=== PATIENT | male | born 1975 | race Caucasian/White ===

== ENCOUNTER 2022-02-21 07:43 | Outpatient (CLI) | payer BC, SELFPAY ==
[2022-02-21 13:36] LABS: Albumin* 4.5 g/dL (3.3-5.0); Chloride* 101 mmol/L (96-114); Sodium* 137 mmol/L (135-149)
[2022-02-21 13:37] LABS: Potassium* 4.7 mmol/L (3.6-5.1)
[2022-02-21 13:38] LABS: Cholesterol* 226 mg/dL (90-199)
[2022-02-21 13:39] LABS: Alanine Aminotransferase* 32 U/L (4-50); Alkaline Phosphatase* 115 U/L (40-150); Aspartate Amino Transferase* 21 U/L (12-35); Bilirubin Total* 0.7 mg/dL (0.1-1.5); Blood Urea Nitrogen* 15 mg/dL (5-24); Calcium* 9.7 mg/dL (8.4-10.6); Carbon Dioxide* 24 mmol/L (20-32); Creatinine* 0.9 mg/dL (0.5-1.5); Estimated Glomerular Filt Rate 106 ml/min; Glucose* 161 mg/dL (60-115); Triglycerides* 262 mg/dL (40-149); Uric Acid* 7.4 mg/dL (2.2-8.4)
[2022-02-21 13:40] LABS: HDL Cholesterol* 47 mg/dL (>=40); LDL Cholesterol Calculated 127 mg/dL (<100)
[2022-02-21 14:07] LABS: Total Protein* 8.2 g/dL (6.0-8.3)
== END 2022-02-21 07:44 | disposition home or self-care (01) ==
PROVIDERS: PCP Family Medicine; Visit Provider Family Medicine
DX: Z00.00 Encounter for general adult medical examination without abnormal findings (principal); E11.9 Type 2 diabetes mellitus without complications; I10 Essential (primary) hypertension; M10.9 Gout, unspecified; Z13.6 Encounter for screening for cardiovascular disorders
CPT/HCPCS: 80053; 80061; 84550

== ENCOUNTER 2022-05-27 14:21 | Outpatient (CLI) | payer BC, SELFPAY ==
[2022-05-27 14:16] LABS: Microalbumin Urine 1 mg/dL
[2022-05-27 14:18] LABS: Creatinine Urine 230.1 mg/dL; Microalbumin Creatinine Ratio 0 mg/g (0-30)
[2022-05-27 14:26] LABS: Albumin* 4.6 g/dL (3.3-5.0)
[2022-05-27 14:27] LABS: Chloride* 107 mmol/L (96-114); Potassium* 4.4 mmol/L (3.6-5.1); Sodium* 140 mmol/L (135-149)
[2022-05-27 14:29] LABS: Bilirubin Total* 0.6 mg/dL (0.1-1.5); Carbon Dioxide* 24 mmol/L (20-32); Cholesterol* 165 mg/dL (90-199); Creatinine* 0.9 mg/dL (0.5-1.5); Estimated Glomerular Filt Rate 106 ml/min
[2022-05-27 14:30] LABS: Alanine Aminotransferase* 52 U/L (4-50); Alkaline Phosphatase* 96 U/L (40-150); Aspartate Amino Transferase* 24 U/L (12-35); Blood Urea Nitrogen* 16 mg/dL (5-24); Calcium* 9.6 mg/dL (8.4-10.6); Glucose* 148 mg/dL (60-115); Total Protein* 7.2 g/dL (6.0-8.3); Triglycerides* 217 mg/dL (40-149); Uric Acid* 5.8 mg/dL (2.2-8.4)
[2022-05-27 14:31] LABS: HDL Cholesterol* 44 mg/dL (>=40); LDL Cholesterol Calculated 78 mg/dL (<100)
[2022-05-27 15:19] LABS: Vitamin B12* 429 pg/mL (243-894)
== END 2022-05-27 14:22 | disposition home or self-care (01) ==
PROVIDERS: PCP Family Medicine; Visit Provider Family Medicine
DX: E11.9 Type 2 diabetes mellitus without complications (principal); E78.00 Pure hypercholesterolemia, unspecified; I10 Essential (primary) hypertension; M10.9 Gout, unspecified; N20.0 Calculus of kidney
CPT/HCPCS: 80053; 80061; 82043; 82570; 82607; 84550

== ENCOUNTER 2022-10-11 07:22 | Outpatient (CLI) | payer BC, SELFPAY | END 2022-10-11 07:23 | disposition home or self-care (01) | LOC: NFLDREF 10-12 03:41 | PROVIDERS: PCP Family Medicine; Referring Provider Family Medicine; Visit Provider Family Medicine | DX: E11.9 Type 2 diabetes mellitus without complications (principal); E78.00 Pure hypercholesterolemia, unspecified; I10 Essential (primary) hypertension; E66.01 Morbid (severe) obesity due to excess calories | CPT/HCPCS: 80053; 80061; 82043; 82570; 82607 ==

== ENCOUNTER 2023-05-19 10:09 | Outpatient (CLI) | payer BC, SELFPAY | END 2023-05-19 10:10 | disposition home or self-care (01) | PROVIDERS: PCP Family Medicine; Visit Provider Family Medicine | DX: E11.9 Type 2 diabetes mellitus without complications (principal); I10 Essential (primary) hypertension; M10.9 Gout, unspecified | CPT/HCPCS: 80053; 80061; 82043; 82570; 82607; 84550 ==

== ENCOUNTER 2024-05-04 13:52 | Outpatient (CLI) | payer BC, SELFPAY ==
--- OUTSIDE RECORDS SUMMARY | 2024-05-06 10:56 | XMS_ITS | Continuity of Care Document ---
Author Name [facility] Organization [facility] Care Team Providers Care Print Journalist Name Role Phone [facility] Unavailable Unavailable Problems Combined list of problems from Department of Defense and Veterans Affairs facilities. It does not include entries that were removed or entered in error. Problem Status Onset Date Problem Type Date of Resolution Comments Source Exposure to potentially hazardous substance ([facility] [id number]) Active 09/05/19 24 Condition Sep 05, 2023 Entered By: BRIANA FLANAGAN [facility]: [facility] [employer] Documentation Initiative [facility] Body mass index 30+ - obesity Active Condition [facility] Diabetes Mellitus Type 2 ([facility] [id number]) Active Condition [facility] Diabetic retinopathy Active Condition [facility] Family social history Active Condition Jul 05, 2022 Entered By: LONNIE DE LA CRUZ Comment: lives with (line service technician at [facility]) she smokes tobacco and plan is to quit togetherJul 05, 2022 Entered By: LONNIE DE LA CRUZ Comment: 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[facility] [employer] [facility], 2022 Entered By: LONNIE DE LA CRUZ Comment: 30% [place]: [place], [place], [place], Jane,[place], [place] reeceJan 2022 Entered By: LONNIE DE LA CRUZ Comment: Tobacco Starated at age 20 max use was 1/2PPD now cut back to 5 or 6 Cig/dayJul 05, 2022 Entered By: LONNIE DE LA CRUZ Comment: NO AlcoholJul 05, 2022 Entered By: LONNIE DE LA CRUZ Comment: 2 STEP KIDS, Son [place]aughter [place] Entered By: LONNIE DE LA CRUZ Comment: Dad at age 59 NonHodgkins lymphoma, Mom has Parkinsons at age 70Jan 2022 Entered By: LONNIE DE LA CRUZ Comment: 1 Older sister has similar health problems [facility] Gout Active Condition [facility] History of cellulitis Active Condition Jul 05, 2022 Entered By: LONNIE DE LA CRUZ Comment: was hospitalized 01/2022 for Sepsis from left leg closer to knee [facility] History of surgery Active Condition Jul 05, 2022 Entered By: LONNIE DE LA CRUZ Comment: s/p Tonsillectomy [facility] HTN - Hypertension ([facility] [id number]) Active Condition [facility] Hyperlipidemia ([facility] [id number]) Active Condition [facility] Kidney Stone ([facility] [id number]) Active Condition [facility] OA - Osteoarthritis ([facility] [id number]) Active Condition Aug 06, 2022 Entered By: LONNIE DE LA CRUZ Comment: whole health counseling -cancelled/fail ed scheduling [facility] Diagnosis: ICD-10-CM Z00.01 Encounter for general adult medical exam w abnormal findings Active Diagnosis [facility] Diagnosis: ICD-10-CM Z01.01 Encounter for exam of eyes and vision w abnormal findings Active Diagnosis [facility] Medications Combined list of outpatient medications from Department of Defense and Veterans Affairs facilities.Medications provided include 1) outpatient medications from the last 15 months, and 2) patient-reported medications. Medication Details Route Status Patient Instructions Prescription Expires Prescription Number Last Dispense Date Ordering Provider Order Date Order Qty Source ALLOPURINOL 100MG TAB TAKE TWO TABLETS BY MOUTH EVERY DAY ORAL ACTIVE CINDY DE LA CRUZ 2022 [facility] CARBOXYMETH YLCELLULOSE NA 1% GEL,OPH 0.4ML INSTILL 1 DROP TO BOTH EYES FOUR TIMES A DAY NEEDED FOR DRY EYE, TEARING, BLURRY VISION OR EYE DISCOMFO RT OPHTHA [facility]IC 04/08/2024 [id number] [facility] DE JESUS 2022 [facility] FISH OIL 1000MG (500MG DHA/EPA) CAP,ORAL TAKE 1 CAPSULE BY MOUTH EVERY DAY ORAL ACTIVE CINDY DE LA CRUZ 2022 [facility] GLIPIZIDE 5MG TAB,SA TAKE ONE TABLET BY MOUTH EVERY DAY ORAL ACTIVE CINDY DE LA CRUZ 2022 [facility] HYDROCHLORO THIAZIDE 12.5MG/AYANNA NOPRIL 10MG TAB TAKE ONE TABLET BY MOUTH EVERY MORNING ORAL ACTIVE DE LA CRUZCINDY HAYES S 2023 [facility] METFORMIN HCL 750MG 24HR TAB,SA TAKE TWO TABLETS BY MOUTH EVERY DAY ORAL ACTIVE DE LA CRUZCINDY HAYES S 2023 [facility] ROSUVASTATI N CA 5MG TAB TAKE TWO TABLETS BY MOUTH EVERY DAY ORAL ACTIVE DE LA CRUZCINDY HAYES S 2022 [facility] VARENICLINE TAB TAKE 0.5-1MG BY MOUTH UD ORAL ACTIVE DE LA CRUZCINDY HAYES S 2023 [facility] Allergies, Adverse Reactions, Alerts Combined list of allergies from Department of [facility] and Veterans Affairs facilities. It does not include entries that were removed or entered in error. Substance Category Reaction Severity Reaction type Status Date Reported Comments Source No Known Allergies Drug allergy (disorder) active 09/07/2007 [facility] Immunizations Combined list of available immunizations from the Department of [facility] and Veterans Affairs facilities. Immunization Series Date Given Administered By Site Reaction Lot Number CVX Code Drug Skip Pitman Status Comments Source PNEUMOCOCCAL CONJUGATE PCV20, POLYSACCHARID E [id number] CONJUGATE, ADJUVANT, PF 2023 FREYA SANTO LEFT DELTO ID [id number] 216 complet ed [facility] INFLUENZA, INJECTABLE, QUADRIVALENT, PRESERVATIVE FREE 2022 150 complet ed [facility] COVID-19 (PFIZER), MRNA, LNP-S, BIVALENT BOOSTER, PF, 30 MCG/0.3 ML DOSE 4 2022 ANUJA REAVES LEFT DELTO ID [id number] 300 complet ed [facility] TDAP [address] [facility] COVID-19 (PFIZER), MRNA, LNP-S, PF, 30 MCG/0.3 ML DOSE 3 2020 208 complet ed [id number] COVID-19 (PFIZER), MRNA, LNP-S, PF, 30 MCG/0.3 ML DOSE 2020 208 complet ed [facility] INFLUENZA, UNSPECIFIED FORMULATION 2020 88 complet ed [facility] COVID-19 (PFIZER), MRNA, LNP-S, PF, 30 MCG/0.3 ML DOSE 2 2020 208 complet ed PFR; [id number]; 1 [facility] COVID-19 (PFIZER), MRNA, LNP-S, PF, 30 MCG/0.3 ML DOSE 1 2020 208 complet ed PFR; [id number]; 1 [facility] INFLUENZA, INJECTABLE, QUADRIVALENT, PRESERVATIVE FREE 2019 150 complet ed [facility] TDAP 2010 115 complet ed [facility] Results Combined list of recent chemistry, hematology and other laboratory results from Department of Defense and Veterans Affairs, ranging from 15 months to all on record, depending upon the facility. Order Name Results Value Reference Range Date Interpretation Specimen Comments Source OCCULT BLOOD FIT X1 SCREEN HEMOGLOBIN .GASTROINT ESTINAL.LO WER [PRESENCE] IN STOOL BY IMMUNOASSA Y --1ST SPECIMEN Negative 08/10 Specimen Type: FECES No comment entered. Ordering Provider: LONNIE DE LA CRUZ Report Released Date/Time: Jul 05, 2022 02:53 PM Reporting Lab: [facility] [address] Performing Lab: [facility] [address] [facility] MICROALB UMIN/CRE ATININE RATIO URINE CREATININE [MASS/VOLU ME] IN URINE 98.5 mg/dL 58.0 - 161.0 07/05 Specimen Type: URINE No comment entered. Ordering Provider: LONNIE DE LA CRUZ Report Released Date/Time: Jul 05, 2022 02:54 PM Reporting Lab: [facility] [address] Performing Lab: [facility] [address] [facility] MICROALB UMIN/CRE ATININE RATIO URINE MICROALBUM IN/CREATIN INE [MASS RATIO] IN URINE 8.9 mg/g{cre at} <29.9 - 29.9 07/05 Specimen Type: URINE No comment entered. Ordering Provider: LONNIE DE LA CRUZ Report Released Date/Time: Jul 05, 2022 02:54 PM Reporting Lab: [facility] [address] Performing Lab: [facility] [address] [facility] MICROALB UMIN/CRE ATININE RATIO URINE MICROALBUM IN [MASS/VOLU ME] IN URINE 8.8 mg/L <29.9 - 29.9 07/05 Specimen Type: URINE No comment entered. Ordering Provider: LONNIE DE LA CRUZ Report Released Date/Time: Jul 05, 2022 02:54 PM Reporting Lab: [facility] [address] Performing Lab: [facility] [address] [facility] HIV AG/AB SCREEN HIV 1+2 AB+HIV1 P24 AG [PRESENCE] IN SERUM OR PLASMA BY IMMUNOASSA Y NEGATIVE 07/05 Specimen Type: SERUM No comment entered. Ordering Provider: LONNIE DE LA CRUZ Report Released Date/Time: Jul 05, 2022 02:53 PM Reporting Lab: [facility] [address] Performing Lab: [facility] [address] [facility] ANTI-HEP C(EIA) HEPATITIS C VIRUS AB [PRESENCE] IN SERUM NEGATIVE 07/05 Specimen Type: SERUM No comment entered. Ordering Provider: LONNIE DE LA CRUZ Report Released Date/Time: Jul 05, 2022 02:53 PM Reporting Lab: [facility] [address] Performing Lab: [facility] [address] [facility] HEMOGLOB IN A1C HEMOGLOBIN A1C/HEMOGL OBIN.TOTAL IN BLOOD 6.9 4.0 - 6.0 07/05 H Specimen Type: BLOOD Comment: Values obtained from A1C measurement s can vary. For typical A1C assays, a reported value of 7.0 could actually be between 6.7 and 7.3 if measured by a reference method. A reported value of 9.0 could actually be between 8.7 and 9.3. Ref: http://www. ngsp.org/[place] Pdata.asp Ordering Provider: LONNIE DE LA CRUZ Report Released Date/Time: Jul 05, 2022 02:53 PM Reporting Lab: [facility] [address] Performing Lab: [facility] [address] [facility] CBC & DIFF LEUKOCYTES [#/VOLUME] IN BLOOD BY AUTOMATED COUNT 8.40 10*3/uL 4.0 - 11.0 07/05 Specimen Type: BLOOD Comment: Automated Differentia l Performed Ordering Provider: LONNIE DE LA CRUZ Report Released Date/Time: Jul 05, 2022 02:54 PM Reporting Lab: [facility] [address] Performing Lab: [facility] [address] [facility] CBC & DIFF ERYTHROCYT ES [#/VOLUME] IN BLOOD BY AUTOMATED COUNT 5.46 10*6/uL 4.6 - 6.2 07/05 Specimen Type: BLOOD Comment: Automated Differentia l Performed Ordering Provider: LONNIE DE LA CRUZ Report Released Date/Time: Jul 05, 2022 02:54 PM Reporting Lab: [facility] [address] Performing Lab: [facility] [address] [facility] CBC & DIFF HEMOGLOBIN [MASS/VOLU ME] IN BLOOD 15.9 g/dL 13.5 - 17.9 07/05 Specimen Type: BLOOD Comment: Automated Differentia l Performed Ordering Provider: LONNIE DE LA CRUZ Report Released Date/Time: Jul 05, 2022 02:54 PM Reporting Lab: [facility] [address] Performing Lab: [facility] [address] [facility] CBC & DIFF HEMATOCRIT [VOLUME FRACTION] OF BLOOD BY AUTOMATED COUNT 48.7 41 - 54 07/05 Specimen Type: BLOOD Comment: Automated Differentia l Performed Ordering Provider: LONNIE DE LA CRUZ Report Released Date/Time: Jul 05, 2022 02:54 PM Reporting Lab: [facility] [address] Performing Lab: [facility] [address] [facility] CBC & DIFF MCV [ENTITIC VOLUME] BY AUTOMATED COUNT 89.2 fL 80 - 100 07/05 Specimen Type: BLOOD Comment: Automated Differentia l Performed Ordering Provider: LONNIE DE LA CRUZ Report Released Date/Time: Jul 05, 2022 02:54 PM Reporting Lab: [facility] [address] Performing Lab: [facility] [address] [facility] CBC & DIFF MCH [ENTITIC MASS] BY AUTOMATED COUNT 29.1 pg 27 - 33 07/05 Specimen Type: BLOOD Comment: Automated Differentia l Performed Ordering Provider: LONNIE DE LA CRUZ Report Released Date/Time: Jul 05, 2022 02:54 PM Reporting Lab: [facility] [address] Performing Lab: [facility] [address] [facility] CBC & DIFF MCHC [MASS/VOLU ME] BY AUTOMATED COUNT 32.6 g/dL 32.0 - 37.5 07/05 Specimen Type: BLOOD Comment: Automated Differentia l Performed Ordering Provider: LONNIE DE LA CRUZ Report Released Date/Time: Jul 05, 2022 02:54 PM Reporting Lab: [facility] [address] Performing Lab: [facility] [address] [facility] CBC & DIFF PLATELETS [#/VOLUME] IN BLOOD BY AUTOMATED COUNT 302 10*3/uL 150 - 400 07/05 Specimen Type: BLOOD Comment: Automated Differentia l Performed Ordering Provider: LONNIE DE LA CRUZ Report Released Date/Time: Jul 05, 2022 02:54 PM Reporting Lab: [facility] [address] Performing Lab: [facility] [address] [facility] CBC & DIFF PLATELET MEAN VOLUME [ENTITIC VOLUME] IN BLOOD BY AUTOMATED COUNT 9.5 fL 7.4 - 10.4 07/05 Specimen Type: BLOOD Comment: Automated Differentia l Performed Ordering Provider: LONNIE DE LA CRUZ Report Released Date/Time: Jul 05, 2022 02:54 PM Reporting Lab: [facility] [address] Performing Lab: [facility] [address] [facility] CBC & DIFF NEUTROPHIL S/100 LEUKOCYTES IN BLOOD BY MANUAL COUNT 61.3 07/05 Specimen Type: BLOOD Comment: Automated Differentia l Performed Ordering Provider: LONNIE DE LA CRUZ Report Released Date/Time: Jul 05, 2022 02:54 PM Reporting Lab: [facility] [address] Performing Lab: [facility] [address] [facility] CBC & DIFF LYMPHOCYTE S/100 LEUKOCYTES IN BLOOD BY MANUAL COUNT 27.6 07/05 Specimen Type: BLOOD Comment: Automated Differentia l Performed Ordering Provider: LONNIE DE LA CRUZ Report Released Date/Time: Jul 05, 2022 02:54 PM Reporting Lab: [facility] [address] Performing Lab: [facility] [address] [facility] CBC & DIFF MONOCYTES/ 100 LEUKOCYTES IN BLOOD BY AUTOMATED COUNT 7.1 07/05 Specimen Type: BLOOD Comment: Automated Differentia l Performed Ordering Provider: LONNIE DE LA CRUZ Report Released Date/Time: Jul 05, 2022 02:54 PM Reporting Lab: [facility] [address] Performing Lab: [facility] [address] [facility] CBC & DIFF EOSINOPHIL S/100 LEUKOCYTES IN BLOOD BY AUTOMATED COUNT 3.0 07/05 Specimen Type: BLOOD Comment: Automated Differentia l Performed Ordering Provider: LONNIE DE LA CRUZ Report Released Date/Time: Jul 05, 2022 02:54 PM Reporting Lab: [facility] [address] Performing Lab: [facility] [address] [facility] CBC & DIFF BASOPHILS/ 100 LEUKOCYTES IN BLOOD BY MANUAL COUNT 0.6 07/05 Specimen Type: BLOOD Comment: Automated Differentia l Performed Ordering Provider: LONNIE DE LA CRUZ Report Released Date/Time: Jul 05, 2022 02:54 PM Reporting Lab: [facility] [address] Performing Lab: [facility] [address] [facility] CBC & DIFF ERYTHROCYT E DISTRIBUTI ON WIDTH [RATIO] BY AUTOMATED COUNT 13.8 11.5 - 14.5 07/05 Specimen Type: BLOOD Comment: Automated Differentia l Performed Ordering Provider: LONNIE DE LA CRUZ Report Released Date/Time: Jul 05, 2022 02:54 PM Reporting Lab: [facility] [address] Performing Lab: [facility] [address] [facility] CBC & DIFF LYMPHOCYTE S [#/VOLUME] IN BLOOD BY AUTOMATED COUNT 2.32 10*3/uL 1.0 - 4.0 07/05 Specimen Type: BLOOD Comment: Automated Differentia l Performed Ordering Provider: LONNIE DE LA CRUZ Report Released Date/Time: Jul 05, 2022 02:54 PM Reporting Lab: [facility] [address] Performing Lab: [facility] [address] [facility] CBC & DIFF MONOCYTES [#/VOLUME] IN BLOOD BY AUTOMATED COUNT 0.60 10*3/uL 0.1 - 1.0 07/05 Specimen Type: BLOOD Comment: Automated Differentia l Performed Ordering Provider: LONNIE DE LA CRUZ Report Released Date/Time: Jul 05, 2022 02:54 PM Reporting Lab: [facility] [address] Performing Lab: [facility] [address] [facility] CBC & DIFF NEUTROPHIL S [#/VOLUME] IN BLOOD BY AUTOMATED COUNT 5.15 10*3/uL 2.0 - 7.7 07/05 Specimen Type: BLOOD Comment: Automated Differentia l Performed Ordering Provider: LONNIE DE LA CRUZ Report Released Date/Time: Jul 05, 2022 02:54 PM Reporting Lab: [facility] [address] Performing Lab: [facility] [address] [facility] CBC & DIFF EOSINOPHIL S [#/VOLUME] IN BLOOD BY AUTOMATED COUNT 0.25 10*3/uL 0 - 0.5 07/05 Specimen Type: BLOOD Comment: Automated Differentia l Performed Ordering Provider: LONNIE DE LA CRUZ Report Released Date/Time: Jul 05, 2022 02:54 PM Reporting Lab: [facility] [address] Performing Lab: [facility] [address] [facility] CBC & DIFF BASOPHILS [#/VOLUME] IN BLOOD BY AUTOMATED COUNT 0.05 10*3/uL 0 - 0.2 07/05 Specimen Type: BLOOD Comment: Automated Differentia l Performed Ordering Provider: LONNIE DE LA CRUZ Report Released Date/Time: Jul 05, 2022 02:54 PM Reporting Lab: [facility] [address] Performing Lab: [facility] [address] [facility] CBC & DIFF IG(META,MY BJ,PRO) 0.4 07/05 Specimen Type: BLOOD Comment: Automated Differentia l Performed Ordering Provider: LONNIE DE LA CRUZ Report Released Date/Time: Jul 05, 2022 02:54 PM Reporting Lab: [facility] [address] Performing Lab: [facility] [address] [facility] CBC & DIFF IMMATURE GRANULOCYT ES [PRESENCE] IN BLOOD BY AUTOMATED COUNT 0.03 10*3/uL 0 - 0.1 07/05 Specimen Type: BLOOD Comment: Automated Differentia l Performed Ordering Provider: LONNIE DE LA CRUZ Report Released Date/Time: Jul 05, 2022 02:54 PM Reporting Lab: [facility] [address] Performing Lab: [facility] [address] [facility] LIPID PANEL,NO N-FASTIN G CHOLESTERO L [MASS/VOLU ME] IN SERUM OR PLASMA 164 mg/dL <199 - 199 07/05 Specimen Type: PLASMA Comment: Elevated triglycerid e result from a non-fasting specimen should be interpreted with caution. A fasting panel is recommended for accurate triglycerid es when trigs are >200 from a non-fasting specimen. Ordering Provider: LONNIE DE LA CRUZ Report Released Date/Time: Jul 05, 2022 02:54 PM Reporting Lab: [facility] [address] Performing Lab: [facility] [address] [facility] LIPID PANEL,NO N-FASTIN G CHOLESTERO L IN HDL [MASS/VOLU ME] IN SERUM OR PLASMA 41 mg/dL 40 07/05 Specimen Type: PLASMA Comment: Elevated triglycerid e result from a non-fasting specimen should be interpreted with caution. A fasting panel is recommended for accurate triglycerid es when trigs are >200 from a non-fasting specimen. Ordering Provider: LONNIE DE LA CRUZ Report Released Date/Time: Jul 05, 2022 02:54 PM Reporting Lab: [facility] [address] Performing Lab: [facility] [address] [facility] LIPID PANEL,NO N-FASTIN G CHOLESTERO L IN LDL [MASS/VOLU ME] IN SERUM OR PLASMA BY CALCULATIO N 65 mg/dL <99 - 99 07/05 Specimen Type: PLASMA Comment: Elevated triglycerid e result from a non-fasting specimen should be interpreted with caution. A fasting panel is recommended for accurate triglycerid es when trigs are >200 from a non-fasting specimen. Ordering Provider: LONNIE DE LA CRUZ Report Released Date/Time: Jul 05, 2022 02:54 PM Reporting Lab: [facility] [address] Performing Lab: [facility] [address] [facility] LIPID PANEL,NO N-FASTIN G CHOLESTERO L IN VLDL [MASS/VOLU ME] IN SERUM OR PLASMA BY CALCULATIO N 58 mg/dL <29 - 29 07/05 H Specimen Type: PLASMA Comment: Elevated triglycerid e result from a non-fasting specimen should be interpreted with caution. A fasting panel is recommended for accurate triglycerid es when trigs are >200 from a non-fasting specimen. Ordering Provider: LONNIE DE LA CRUZ Report Released Date/Time: Jul 05, 2022 02:54 PM Reporting Lab: [facility] [address] Performing Lab: [facility] [address] [facility] LIPID PANEL,NO N-FASTIN G CHOLESTERO L NON HDL [MASS/VOLU ME] IN SERUM OR PLASMA 123 mg/dL <129 - 129 07/05 Specimen Type: PLASMA Comment: Elevated triglycerid e result from a non-fasting specimen should be interpreted with caution. A fasting panel is recommended for accurate triglycerid es when trigs are >200 from a non-fasting specimen. Ordering Provider: LONNIE DE LA CRUZ Report Released Date/Time: Jul 05, 2022 02:54 PM Reporting Lab: [facility] [address] Performing Lab: [facility] [address] [facility] LIPID PANEL,NO N-FASTIN G TRIGLYCERI DE [MASS/VOLU ME] IN SERUM OR PLASMA 292 mg/dL <149 - 149 07/05 H Specimen Type: PLASMA Comment: Elevated triglycerid e result from a non-fasting specimen should be interpreted with caution. A fasting panel is recommended for accurate triglycerid es when trigs are >200 from a non-fasting specimen. Ordering Provider: LONNIE DE LA CRUZ Report Released Date/Time: Jul 05, 2022 02:54 PM Reporting Lab: [facility] [address] Performing Lab: [facility] [address] [facility] ALT/SGPT ALANINE AMINOTRANS FERASE [ENZYMATIC ACTIVITY/V OLUME] IN SERUM OR PLASMA 32 U/L <55 - 55 07/05 Specimen Type: PLASMA Comment: Elevated triglycerid e result from a non-fasting specimen should be interpreted with caution. A fasting panel is recommended for accurate triglycerid es when trigs are >200 from a non-fasting specimen. Ordering Provider: LONNIE DE LA CRUZ Report Released Date/Time: Jul 05, 2022 02:54 PM Reporting Lab: [facility] [address] Performing Lab: [facility] [address] [facility] AST/SGOT ASPARTATE AMINOTRANS FERASE [ENZYMATIC ACTIVITY/V OLUME] IN SERUM OR PLASMA 20 U/L <34 - 34 07/05 Specimen Type: PLASMA Comment: Elevated triglycerid e result from a non-fasting specimen should be interpreted with caution. A fasting panel is recommended for accurate triglycerid es when trigs are >200 from a non-fasting specimen. Ordering Provider: LONNIE DE LA CRUZ Report Released Date/Time: Jul 05, 2022 02:54 PM Reporting Lab: [facility] [address] Performing Lab: [facility] [address] [facility] TSH W/REFLEX TO FREE T4 THYROTROPI N [UNITS/VOL UME] IN SERUM OR PLASMA 1.03 u[IU]/mL 0.35 - 4.94 07/05 Specimen Type: PLASMA Comment: Elevated triglycerid e result from a non-fasting specimen should be interpreted with caution. A fasting panel is recommended for accurate triglycerid es when trigs are >200 from a non-fasting specimen. Ordering Provider: LONNIE DE LA CRUZ Report Released Date/Time: Jul 05, 2022 02:54 PM Reporting Lab: [facility] [address] Performing Lab: [facility] [address] [facility] Vital Signs Combined list of inpatient and outpatient Vital Signs from Department of Defense and Veterans Affairs, ranging from 12 months to all on record, depending upon the facility. Vital Sign Value Date Comments Source SYSTOLIC BLOOD PRESSURE 124 07/17/2023 13:31:51 [facility] DIASTOLIC BLOOD PRESSURE 81 07/17/2023 13:31:51 [facility] PULSE OXIMETRY 97% 07/17/2023 13:31:51 [facility] WEIGHT 210.3 07/17/2023 13:31:51 [facility] BMI 34kg/m2 07/17/2023 13:31:51 [facility] PAIN 0 07/17/2023 13:31:51 [facility] HEIGHT 66.5 07/17/2023 13:31:51 [facility] TEMPERATURE 97.7 07/17/2023 13:31:51 [facility] PULSE 108 07/17/2023 13:31:51 [facility] RESPIRATION 16 07/17/2023 13:31:51 [facility] Encounters Combined list of: 1) Encounters from Department of Veterans Affairs facilities going back up to thelast 18 months. 2) Encounters from the Department of Defense facilities going back up to 280 months. Location Location Details Encounter Type Encounter Number Reason For Visit Attending Provider ADM Date DC Date Status Disposition Source [facility] DETERMINE REFRACTIVE STATE [id number] Diagnos is: ICD-10- CM Z01.01 Encount er for exam of eyes and vision w abnorma l finding s
Rickie RENEE E 04/04 [facility] Outpatient Encounter [id number] Diagnos is: ICD-10- CM Z01.01 Encount er for exam of eyes and vision w abnorma l finding s
HOLLY DE JESUS 04/08 [facility] Outpatient Encounter [id number] 05/09 [facility] Outpatient Encounter [id number] 05/09 [facility] Outpatient Encounter [id number] 05/19 [facility] Outpatient Encounter [id number] 07/08 [facility] Outpatient Encounter [id number] [facility] [facility] O/P EST MOD 30 MIN [id number] Diagnos is: ICD-10- CM Z00.01 Encount er for general adult medical exam w abnorma l finding s
MALIK DE LA CRUZ S 07/17 [facility] Procedures Combined list of: 1) Procedures from Department of Veterans Affairs facilities going back up to thelast 18 months, not all [place] non-surgical procedures are included; 2) All procedures from the Department of Defense facilities. Procedure Procedure Type Code Date Perfomer Comments Christian [facility] FITTING OF SPECTACLES, EXCEP T FOR APHAKIA; MONOFOCAL 10/05/2002 Do D Social History Combined list of available smoking, tobacco, and other social history from Department of Defense and Veterans Affairs facilities. Social History Type Response Date Comment Christian e Tobacco smoking status NHIS VA-TOBACCO USER SOME DAYS 07/17/2023 [facility] History of tobacco use [place]-TOBACCO DOESNT USE WI 30 MIN WAKEUP 07/17/2023 [facility] History of tobacco use [place]-TOBACCO USER EVERY DAY 3 [facility] This section is an empty social history section. DoD
--- OUTSIDE RECORDS SUMMARY | 2024-05-06 10:57 | XMS_ITS | Referral Summary ---
Author Organization [place] [facility] Address [address] [place] [address] Care Team Providers Care Chef Head Name Role Phone Jose R Lugo MD Primary Care Provider + Allergies No known active allergies Medications terbinafine (LAMISIL) 250 MG tablet Take 250 mg by mouth daily Active allopurinol (ZYLOPRIM) 100 MG tablet Take 200 mg by mouth daily Active lovastatin (MEVACOR) 20 MG tablet Take 20 mg by mouth At Bedtime Active glipiZIDE (GLUCOTROL XL) 5 MG 24 hr tablet Take 5 mg by mouth daily Active metFORMIN (GLUCOPHAGE-XR) 750 MG 24 hr tablet Take 750 mg by mouth 2 times daily (with meals) Active lisinopril (ZESTRIL) 10 MG tablet Take 10 mg by mouth daily Active acetaminophen (TYLENOL) 325 MG tabletIndicatio ns:Left leg cellulitis Take 2 tablets (650 mg) by mouth every 6 hours as needed for mild pain or other (and adjunct with moderate or severe pain or per patient request) 30 tablet 02/26/2022 Active Active Problems Problem Noted Date Diagnosed Date Left leg cellulitis 02/24/2022 Severe sepsis 02/24/2022 Social History Tobacco Use Types Packs/Day Years Used Date Smoking Tobacco: Former Cigarettes Q uit: 03/25/2018 Smokeless Tobacco: Never Tobacco Cessation:Counseling Given: No Adolescent Education Answer Date Record ed Getting School Help Needed Not on file 03/29 Sex and Gender Information Value Date Recorded Sex Assigned at Not on file 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 Gender Identity Not on file Sexual Orientation Not on file Last Filed Vital Signs Vital Sign Reading Time Taken Comments Blood Pressure 117/84 02/26/2022 8:05 AM CDT Pulse 90 02/26/2022 8:05 AM CDT Temperature 36.8 ??C (98.3 ??F) 02/26/2022 8:05 AM CD T Respiratory Rate 18 02/26/2022 8:05 AM CDT Oxygen Saturation 94% 02/26/2022 8:05 AM CDT Inhaled Oxygen Concentration - - Weight 94.8 kg (209 lb 1.6 oz) 02/25/2022 1:23 A M CDT Height 170.2 cm (5' 7) 02/25/2022 1:23 AM CDT Body Mass Index 32.75 02/25/2022 1:23 AM CDT Plan of Treatment Not on file Procedures Procedure Name Priority Date/Time Associated Diagnosis Comments GLUCOSE BY METER Routine 02/26/2022 9:16 AM CDT from Last 3 Months or Most Recently Relevant to Health Maintenance Results * (ABNORMAL) Glucose by meter (02/26/2022 9:16 AM CDT) [facility] Signature GLUCOSE BY METER POCT 160(H) 70 - 99 mg/dL 02/26/2022 9:22 AM CDT LABORATORY POC Blood, Capillary BLOOD SPECIMEN / Unknown 02/26/2022 9:16 AM CDT 02/26/2022 9:22 AM CDT us Delbert Aceves MD LAB - [facility] POCT Final Result RH LABORATORY POC [facility] [address] Lab (1st floor, no room number) [place] [address], [facility] [phone] from Last 3 Months or Most Recently Relevant to Health Maintenance Insurance BC[place] OF [place] Advance Directives For more information, please contact: [phone] * Full Code (Latest Code Status on File) Date Activated Date Inactivated Comments 02/26/2022 8:24 AM Question Answer Comments Code status determined by: Discussion with shashanke nt/ legal decision maker * Full Code Date Activated Date Inactivated Comments 02/25/2022 1:15 AM 02/26/2022 8:24 AM All basic an d advanced life-sustaining interventions are performed as appropriate Question Answer Comments Code status determined by: Discussion with shashanke nt/ legal decision maker Care Teams Chef Head Relationship Specialty Start Date End Date Jose R Lugo MD PCP - General 04/24/18
--- OUTSIDE RECORDS SUMMARY | 2024-05-06 10:57 | XMS_ITS | Clinical Summary ---
Author Organization [facility] Address [place], [place] [address] Care Team Providers Care Operator Ground Based Air Defence Name Role Phone Unavailable Primary Care Provider Unavailabl e Social History Tobacco Use Types Packs/Day Years Used Date Smoking Tobacco: Never Assessed Sex and Gender Information Value Date Recorded Sex Assigned at Not on file Gender Identity Not on file Sexual Orientation Not on file Plan of Treatment Not on file
--- OUTSIDE RECORDS SUMMARY | 2024-05-06 10:57 | XMS_ITS | Encounter Summary ---
Author Organization [facility] Address [address] [place] [address]. 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 He next presented with depression. dad from cancer Lymphoma.Stress.. The symptom is described as chronic, chronic and worsening. The symptom is gradual in onset. The symptom started during adulthood. The complaint does not limit activities. The frequency of episodes is daily. Important triggers include recent of family member and stress. He presented for well man exam (18-39 years). The patient is sexually active. Urinary complaints include none. Health maintenance issues include overweight slightly. Cardiovascular risk factors include lifestyle. Patient received health guidance in chest x-ray for history of smoking and cholesterol level and lipid panel. The patient received Up to date. The patient also presented with cigarette smoking. The symptom is described as chronic and chronic. The symptom is ongoing. The symptom started during adulthood. Exposure is 1/2 to 1 pack per day. Prior attempts at cessation include nothing. Important triggers include no known associated factors. ROS: Constitutional: The patient denied chills, fever and recent illness. Eyes: The patient denied eye pain and vision change (glasses exam 1 year). Ears/Nose/Throat/Neck: The patient denied nasal discharge and otalgia. Cardiovascular: The patient denied chest pain/pressure and palpitations. Respiratory: The patient complained of cigarette smoking but denied cough and wheezing. Gastrointestinal: The patient denied constipation and diarrhea. Genitourinary/Nephrology: The patient denied dysuria and urinary frequency. Musculoskeletal: The patient denied arthralgia(s) and myalgias. Dermatologic: The patient denied itching and rash. Neurologic: The patient denied dizziness, headache and paresthesia. Psychiatric: The patient complained of depression but denied insomnia and mood swings. Endocrine: The patient denied diabetes mellitus type 2. Hematologic/Lymphatic: The patient denied abnormal bleeding and bruising. Allergy/Immunology: The patient denied rhinitis. Vital Signs: data collected on 06/07/2008 03:07:14 PM by Yasir Kumar D.O. blood pressure at Left Arm while Sitting is 138/94 mmHg data collected on 06/07/2008 01:48:49 PM by Denise Mcrae weight is 174 pounds clothed height is 6 feet body mass index is 27.66 Kg/m2 sitting heart rate is 84 bpm regular blood pressure at Left Arm while Sitting is 142/98 mmHg PE: Constitutional: GENERAL APPEARANCE: Overall: well nourished, well developed and in no acute distress. Eyes: OPHTHALMOSCOPIC EXAM: Overall: benign fundi; CONJUNCTIVA/EYELIDS: Overall: conjunctiva clear, cornea clear and eyelids normal; PUPILS AND IRISES: Overall: pupils equal, round, reactive to light and accomodation. Ears/Nose/Throat: EXTERNAL EAR: Overall: normal appearance; EXTERNAL NOSE: Overall: benign appearance, no masses and non-tender; OTOSCOPIC EXAM: Overall: external auditory canals clear and tympanic membranes clear; INTERNAL NOSE: Overall: bilateral nasal cavities clear; LIPS/TEETH/GINGIVA: Overall: benign lips, normal dentition, benign gingiva and no masses; ORAL CAVITY/PHARYNX/LARYNX: Overall: tonsils benign, oropharyngeal mucosa clear and no masses. Neck: INSPECTION OF NECK: Overall: normal appearance and no carotid bruits. Respiratory: AUSCULTATION: Overall: breath sounds clear bilaterally; RESPIRATORY EFFORT/RHYTHM: Overall: no retractions and normal rate. Cardiovascular: AUSCULTATION OF HEART: Overall: regular rate, regular rhythm, normal heart sounds and no murmurs; INSPECTION OF CAROTID PULSES: Overall: strong, bilaterally equal, no bruits; INSPECTION OF FEMORAL PULSES: Overall: strong, bilaterally equal pulses, no bruits; INSPECTION OF PEDAL PULSES: Overall: strong, equal bilaterally; EXTREMITIES: Overall: no clubbing and no edema. Abdomen: ABDOMINAL EXAM: Overall: no tenderness and normal bowel sounds; LIVER AND SPLEEN EXAM: Overall: no hepatosplenomegaly; HERNIA EXAM: Overall: no hernias present. Genitourinary: PENIS: Overall: no lesions, no discharge and appropriate Farhat stage of penis; RENAL: flank No CVA tenderness; SCROTUM/TESTES: Overall: no masses, non-tender and appropriate Farhat stage of testicles; URETHRA: Overall: no masses; BLADDER: Overall: no tenderness. Lymphatic: NECK NODES: Overall: anterior cervical chain benign and posterior cervical chain benign; OTHER NODES: Overall: occipital chain benign, auricular chain benign and supraclavicular chain benign; AXILLA/ARM NODES: Overall: axillary non-tender, not enlarged; INGUINAL NODES: Overall: inguinal non-tender, not enlarged. Musculoskeletal: HEAD AND NECK: Overall: head atraumatic and cervical spine benign; DIGITS AND NAILS: Overall: no clubbing and digits benign; SPINE, RIBS AND PELVIS: Overall: good posture, ribs benign and spine benign; GAIT AND STATION: Overall: normal gait and normal station. Integument: INSPECTION OF SKIN: Overall: no rash, lesions; PALPATION: Overall: no induration, no tenderness. Neurologic: DEEP TENDON REFLEXES: Overall: deep tendon reflexes intact; SENSATION: Overall: intact to touch; MENTAL STATUS: Overall: alert and oriented; GAIT: Overall: no ataxia, no unsteadiness; COORDINATION: Overall: no tremors; CRANIAL NERVES: Overall: cranial nerves 2-12 intact; MOTOR: Overall: normal bulk, tone. Psychiatric: ORIENTATION/CONSCIOUSNESS: Overall: oriented to person, place and time; BEHAVIOR/PSYCHOMOTOR ACTIVITY: Overall: no tics, normal psychomotor activity; MOOD AND AFFECT: Overall: normal mood and affect; APPEARANCE: Overall: well-groomed, good eye contact; SPEECH: Overall: normal quality, no aphasia and normal quality, quantity, rate; THOUGHT: Overall: normal form and content; COGNITION/MEMORY: Overall: immediate, recent, remote memory intact and normal concentration, intelligence; JUDGMENT/INSIGHT: Overall: judgment and insight intact. Dx: V70.0 Routine Medical Exam 305.1 Tobacco dependence Rx: Chantix 0.5 mg (11)-1 mg (3x14) Tabs in a Dose Pack, 1 Tablet(s), PO, daily, 30 days, for a total of 30, Starter roger. Chantix Continuing Month Roger 1 mg Tab, 1 Tablet(s), PO, BID, 30 days, 5 refills, for a total of 60. Plan: None Patient Instructions: None TE ENCODING OPERATIONS SUPERVISOR documented in this encounter Plan of Treatment Not on file documented as of this encounter Visit Diagnoses Not on filedocumented in this encounter Care Teams Environmental Sampling Technician Relationship Specialty Start Date End Date Jose R Lugo MD PCP - General 04/24/18 documented as of this encounter
--- OUTSIDE RECORDS SUMMARY | 2024-05-06 10:57 | XMS_ITS | Encounter Summary ---
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 ROS: None PE: None Dx: None Rx: None Plan: None Patient Instructions: None FABRIC INSPECTOR documented in this encounter Plan of Treatment Not on file documented as of this encounter Visit Diagnoses Not on filedocumented in this encounter Care Teams Electrical Prospecting Engineer Relationship Specialty Start Date End Date Jose R Lugo MD PCP - General 04/24/18 documented as of this encounter
--- OUTSIDE RECORDS SUMMARY | 2024-05-06 10:57 | XMS_ITS | Clinical Summary ---
Author Organization [facility] Address [address], [place] [address] Care Team Providers Care Biofuels Research Scientist Name Role Phone Unavailable Primary Care Provider Unavailabl e Source Comments You are receiving this document as you are listed as the primary care provider,follow-up provider, or the patient has been referred to you for consultation.This is in compliance with the Medicare andMedicaid EHR Incentive Program,which states Providers who transition their patient to another setting of careor provider of care or refers their patient to another provider of care shouldprovide summary care record for each transition of care or referral. [facility] Allergies No known active allergies Medications Medication Sig Dispensed Refills Start Date End Date Status lisinopril (ZESTRIL) 10 MG tablet Take 10 mg by mouth daily. 10/13/2021 Active metFORMIN (GLUCOPHAGE) 500 MG tablet Take 500 mg by mouth two times a day. 08/26/2021 Active Active Problems No known active problems Social History Tobacco Use Types Packs/Day Years Used Date Smoking Tobacco: Never Assessed Sex and Gender Information Value Date Recorded Sex Assigned at Not on file Gender Identity Not on file Sexual Orientation Not on file Last Filed Vital Signs Vital Sign Reading Time Taken Comments Blood Pressure - - Pulse - - Temperature - - Respiratory Rate - - Oxygen Saturation - - Inhaled Oxygen Concentration - - Weight 93.4 kg (206 lb) 01/01/2022 9:44 AM CDT Height 170.2 cm (5' 7) 01/01/2022 9:44 AM CDT Body Mass Index 32.26 01/01/2022 9:44 AM CDT Plan of Treatment Health Maintenance Due Date Last Done Comments Colon Cancer Screening Plan Due 1974 Hep C Screening (Preventive Services) 1974 HIV Screening (Preventive Services) 1990 Adult Preventive Visit 1992 HepB (1) 1993 Cholesterol 2009 DTaP/Tdap/Td (2 - Tdap) 10/08/2020 10/08/2010 COVID-19 Vaccine (2 - 2023-2 5 season) 2024 06/16/2021 Influenza (#1) 2024 04/04/2020 Zoster/Shingles (1 of 2) 2024 HepA Aged Out No longer eligi ble based on patient's age to complete this topic Hib Aged Out No longer eligi ble based on patient's age to complete this topic IPV (Polio) Aged Out No longer eligi ble based on patient's age to complete this topic RSV Aged Out No longer eligi ble based on patient's age to complete this topic MCV4 Aged Out No longer eligi ble based on patient's age to complete this topic Pneumococcal Aged Out No longer eligi ble based on patient's age to complete this topic
--- OUTSIDE RECORDS SUMMARY | 2024-05-06 10:57 | XMS_ITS | Clinical Summary ---
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 Gender Identity Not on file Sexual Orientation [...] 02/25/2022 1:23 AM CDT Plan of Treatment Health Maintenance Due Date Last Done Comments ADVANCE CARE PLANNING 1974 ANNUAL REVIEW OF HM ORDERS 1974 CT COLONOGRAPHY 1974 FIT 1974 FLEX SIG 1974 LIPID 1974 YEARLY PREVENTIVE VISIT 1974 sDNA (Cologuard) 1974 COLONOSCOPY 1984 COLORECTAL CANCER SCREENING 1984 HIV SCREENING 1989 HEPATITIS C SCREENING 1992 HEPATITIS B IMMUNIZATION (1 of 3 - 19+ 3-dose series) 1993 PHQ-2 (once per calendar year) 2023 COVID-19 Vaccine (2 - season) 2024 06/16/2021 INFLUENZA VACCINE (#1) 2024 , 03/21/2017, 04/21/2013 ZOSTER IMMUNIZATION (1 of 2) 2024 GLUCOSE 02/26/2025 02/26/2022, 08/2 02/2022, 02/25/2022, Additional history exists DTAP/TDAP/TD IMMUNIZATION (3 - Td or Tdap) 02/22/2032 02/21/2022, 10/08/2010 RSV VACCINE (1 - 1-dose 75+ series) 2049 HPV IMMUNIZATION Aged Out No longer e ligible based on patient's age to complete this topic MENINGITIS IMMUNIZATION Aged Out No l onger eligible based on patient's age to complete this topic Pneumococcal Vaccine: Pediatrics (0 to 5 Years) and At-Risk Patients (6 to 64 Years) Aged Out No longer eligible based on patient's age to complete this topic RSV MONOCLONAL ANTIBODY Aged Out No l onger eligible based on patient's age to complete this topic Procedures Procedure Name Priority Date/Time Associated Diagnosis Comments GLUCOSE BY METER Routine 02/26/2022 9:16 AM CDT from Last 3 Months or Most Recently Relevant to Health Maintenance Results * (ABNORMAL) Glucose by meter (02/26/2022 9:16 AM CDT) [facility] GLUCOSE BY METER POCT 160(H) 70 - 99 mg/dL 02/26/2022 9:22 AM CDT LABORATORY POC Blood, Capillary BLOOD SPECIMEN / Unknown 02/26/2022 9:16 AM CDT 02/26/2022 9:22 AM CDT Delbert Aceves MD LAB - [facility] POCT Final Result LABORATORY [facility] [address] [facility] (1st floor, no room number) [place] [address], [facility] [phone] from Last 3 Months or Most Recently Relevant to Health Maintenance Insurance [facility] [place] [address] Advance Directives For more information, please contact: [phone] * Full Code (Latest Code Status on File) Date Activated Date Inactivated Comments 02/26/2022 8:24 AM Question Answer Comments Code status determined by: Discussion with patie nt/ legal decision maker * Full Code Date Activated Date Inactivated Comments 02/25/2022 1:15 AM 02/26/2022 8:24 AM All basic an d advanced life-sustaining interventions are performed as appropriate Question Answer Comments Code status determined by: Discussion with patie nt/ legal decision maker Care Teams Central Melt Specialist Relationship Specialty Start Date End Date Jose R Lugo MD PCP - General 04/24/18
--- OUTSIDE RECORDS SUMMARY | 2024-05-06 10:57 | XMS_ITS | Encounter Summary ---
Author Organization [facility] Address [address] [place] [address] Care Team Providers Care Dietitian Therapeutic Name Role Phone Jose R Lugo MD Primary Care Provider + Encounter Details Date Type Department Care Team (Late st Contact Info) Description 06/11/2008 Clinic Report (Manager Risk) 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 Current Medication: Chantix 0.5 mg (11)-1 mg (3x14) Tabs in a Dose Pack, 1 Tablet(s), PO, daily, 30 days, for a total of 30, start on June 07, 2008, end on July 06, 2008 and Starter dalia. ROS: None PE: None Dx: (V70.0) - C - Routine Medical Exam 780.79 Fatigue V77.91 Screening, lipids Rx: None Plan: None Patient Instructions: None ORER LACE AND TEXTILES documented in this encounter Plan of Treatment Not on file documented as of this encounter Visit Diagnoses Not on filedocumented in this encounter Care Teams Dietitian Therapeutic Relationship Specialty Start Date End Date Jose R Lugo MD PCP - General 04/24/18 documented as of this encounter
== END 2024-05-04 13:53 | disposition home or self-care (01) ==
LOC: NFLDREF 05-06 10:55
PROVIDERS: PCP Physician Assistant Medical; Referring Provider Physician Assistant Medical; Visit Provider Physician Assistant Medical
DX: I10 Essential (primary) hypertension (principal); E78.00 Pure hypercholesterolemia, unspecified; E11.9 Type 2 diabetes mellitus without complications
CPT/HCPCS: 80053; 80061; 82043; 82570

== ENCOUNTER 2025-04-11 10:43 | Outpatient (CLI) | payer BC, SELFPAY | END 2025-04-11 10:44 | disposition home or self-care (01) | PROVIDERS: PCP Physician Assistant Medical; Referring Provider Physician Assistant Medical; Visit Provider Physician Assistant Medical | DX: I10 Essential (primary) hypertension (principal); E11.9 Type 2 diabetes mellitus without complications; E78.00 Pure hypercholesterolemia, unspecified; Z13.9 Encounter for screening, unspecified; Z72.0 Tobacco use; Z12.5 Encounter for screening for malignant neoplasm of prostate | CPT/HCPCS: 80053; 80061; 82043; 82570; 84443; G0103 ==